=== PATIENT | male | born 1940 | race Caucasian/White ===

== ENCOUNTER 2016-11-24 06:15 | Day surgery (SDC) | payer MEDICARE ==
[~2016-11-24] VITALS: Ht 172.7 cm; Wt 104.3 kg
[2016-11-24] MEDS ORDERED: LEVOTHYROXINE100 MCG PO (06:59)
[2016-11-24] MEDS ORDERED: CARDURA4 MG PO (06:59)
[2016-11-24] MEDS ORDERED: ZOCOR20 MG PO (07:00)
[2016-11-24] MEDS ORDERED: COZAAR100 MG PO (07:04)
[2016-11-24] MEDS ORDERED: METOPROLOL TART50 MG PO (07:05)
[2016-11-24] MEDS ORDERED: GLUCOPHAGE500 MG PO (07:06)
[2016-11-24] MEDS ORDERED: HYDROCODON-ACE1 EAC7 PO (07:08)
[2016-11-24] MEDS ORDERED: CROLOM 4 % OPTH10 ML EACH EYE ×2 (07:09→07:10)
[2016-11-24 07:43] LABS: HEMATOCRIT 25.8 % (42.0-54.0); HEMOGLOBIN 8.7 g/dL (13.5-17.5); MCH 30.6 pg (26.0-34.0); MCHC 33.7 g/dL (31.0-37.0); MCV 90.8 fL (80.0-100.0); RBC 2.84 10x6/uL (4.20-6.10); RDW 14.1 % (11.5-14.5); WBC 7.1 10x3/uL (4.8-10.8)
[2016-11-24 07:58] LABS: CALCIUM 8.4 mg/dL (8.5-10.1); CARBON DIOXIDE 26.4 mmol/L (21.0-32.0); CREATININE - SERUM 1.7 mg/dL (0.6-1.3); POTASSIUM - SERUM 4.4 mmol/L (3.5-5.1)
[2016-11-24 08:11] VITALS: BP 119/83; Ht 172.7 cm; Wt 104.3 kg
--- NOTE | 2016-11-24 09:12 | NUR ---
0840 ABNORMAL LAB: HGB, HCT, BUN, & CR. RESULTS CALLED TO AG GRANT RN/OR. CHART FLAGGED WITH NOTE TO DR. SOUZA. Vidal DAVE R.N.
--- NOTE | 2016-11-24 13:17 | NUR ---
1220-PT. DISCHARGED VIA WHEELCHAIR TO PERSONAL CAR, LEFT WITH FAMILY DRIVING.
--- NOTE | 2016-11-28 13:59 | HP ---
PATIENT: CALISTA LEWIS MEDICAL RECORD: [id number] ACCOUNT: [id number] LOCATION:[facility] : 39 ADMISSION DATE: 11/24/16 HISTORY AND PHYSICAL EXAMINATION HISTORY OF PRESENT ILLNESS: Aurelio is a 76-year-old male with progressive hoarseness and cough over the past 3 months, he has been found to have a laryngeal lesion admitted for microsuspension laryngoscopy and biopsy of that lesion. PAST SURGICAL HISTORY: Includes diabetes, which he was on metformin for but is currently not, but does still check his blood sugar, hypertension and recent loss of vision in his left eye, have been followed by an stick welder for that. CURRENT MEDICATIONS: Synthroid, losartan, metoprolol, doxazosin, and simvastatin. ALLERGIES: No known drug allergies. PHYSICAL EXAMINATION: GENERAL: He distinctly has some hoarseness and a little bit of mild biphasic stridor sound although he has not have any dyspnea. EARS: Canals and TMs are normal. NOSE: No masses, polyps, or drainage. ORAL CAVITY, OROPHARYNX: He wears dentures. Pharynx, mucosa is moist. No lesions or masses. Tongue protrudes midline. NECK: No masses, no adenopathy. Cranial nerves are normal. Flexible exam to right side of the nose after decongestion with ____ nasal cavity, and nasopharynx normal, the hypopharynx, vallecula, base of tongue are normal. The piriformis and postcricoid areas normal, supraglottic larynx, he has thickening on the inferior portion of the laryngeal surface of the epiglottis with a little bit of erythema. This extends to the false cords, especially on the right side which where he has a large, almost polypoid type lesion, very thick and leathery and hanging down between his cords it blocks 2/3 of the right cord, but I can get underneath there and looks like the cord is normal and got good cord mobility, but this does get in the way of closure resting right on its cords. It really does not go up and down much, it really seems probably thick and firm. IMPRESSION: Hoarseness and cough with laryngeal lesion. Has history of smoking. PLAN: Microsuspension laryngoscopy and biopsy laryngeal lesion and debulking of some of that false cord lesion on the right side for his airway. TRANSINT:[id number] Voice Confirmation ID: [id number] DOCUMENT ID: [id number] HISTORY AND PHYSICAL [id number] CALISTA LEWIS ERIC MD at 1359 CC: [id number] DICTATION DATE: 11/20/16 1459 INCOME AUDITOR: 11/20/16 1712 [facility] 11/24/16 [place] [id number]
--- NOTE | 2016-11-28 13:59 | OP ---
PATIENT NAME: CALISTA LEWIS MEDICAL RECORD: [id number] :39 LOCATION:[facility] ADMISSION DATE: SURGEON: KALPANA EL MD DATE OF OPERATION: 11/24/2016 PREOPERATIVE DIAGNOSIS: Laryngeal mass hoarseness. POSTOPERATIVE DIAGNOSIS: Laryngeal mass hoarseness. PROCEDURES: Microsuspension laryngoscopy and excision of cyst from the right false vocal cord. SURGEON: Kalpana El MD. ANESTHESIA: General orotracheal. BLOOD LOSS: 1 cc. SPECIMENS: Cystic mass from the right anterior false cord and biopsies from the false cord and medial AE fold as well. 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 COMPLICATIONS: None. DISPOSITION: Recovery, extubated and stable. DESCRIPTION OF PROCEDURE: He was brought to the operating room and placed in supine position, sedated and intubated with 6.5 tube by anesthesia. The eyes were taped. The table was turned 90 degrees. A head drape was applied and he was positioned for endoscopy. A plastic tooth guard was used to protect his upper gums. Kleinsasser Jeannie. laryngoscope was used to examine the hypopharynx, larynx, vallecula, base of tongue, piriforms, post-cricoid area, esophageal inlet, there was nothing remarkable except for the larynx itself. There was a bulky soft tissue mass at the anterior aspect of the false cord. The laryngoscope was suspended. The microscope was brought in. There was actually a granular almost slightly papillomatous appearance to the surface. The left cord could be visualized, but really had to grab this polypoid pedunculated mass and lifted up to see the right cord at all. It was actually fairly sessile although it did raise up and down a lot and the airway would go down below the cords, so I grasped it with a cup forceps medially and it was too large to just biopsy, I initially planned to just biopsy and debulked it, but I used the upbiting scissors to remove it and it was obvious there was a large cyst in there once I proceeded to do that I excised it around the cyst completely with upbiting scissors and that was sent for specimen. There was still a lot of bulk of soft tissue. The mucosa on that right false cord was definitely not normal when I grasped the lower portion of false cord again and trimmed it down to a more normal size where the true cord could be seen, I took off some more of that tissue and then I took cup biopsy forceps and I trimmed off some additional tissue and some of that particularly nodular mucosa for frozen and it returned benign squamous hyperplasia and chronic inflammation, there was no evidence of malignancy. There was a large cyst there, which was removed and that debulked most of that area, but the mucosa of the laryngeal surface, the epiglottis, the right AE fold and false cord was definitely not normal, was very thickened and leathery, but once the mass was excised both cords could be seen all the way to the anterior commissure, the cords themselves looked normal, the subglottis was OPERATIVE REPORT [id number] CALISTA LEWIS normal. An Afrin pledget was used to stop any oozing for a few minutes then removed prior to extubation. He was extubated, awakened and transported to recovery in good condition. No complications. TRANSINT:[id number] Voice Confirmation ID: [id number] DOCUMENT ID: [id number] KALPANA EL MD at 1359 CC: [id number] DICTATION DATE: 11/24/16 1015 WIRELESS SALES MANAGER: 11/24/16 1134 [facility] 11/24/16 [facility] [address] [place] [address]
== END 2016-11-24 12:20 | disposition home or self-care (01) ==
LOC: D.OPS 06:15 → D.PAN 08:30 → D.OPS 09:15 → D.PAN 09:15 → D.OPS 12:20
PROVIDERS: Anesthesiology
DX: J38.7 Other diseases of larynx (principal); E11.9 Type 2 diabetes mellitus without complications; I10 Essential (primary) hypertension; H54.62 Unqualified visual loss, left eye, normal vision right eye; Z79.899 Other long term (current) drug therapy